=== PATIENT | female | born 1970 | race Caucasian/White ===

== ENCOUNTER → 2017-03-02 | Outpatient (CLI) | payer OTHER ==
--- NOTE | 2017-03-15 10:03 | RADIOLOGY REPORT PS360 ---
US THYROID, US GUIDED BIOPSY THYROID US ORGAN SITE (THYROID), Ordering Physician: Dane Lee MD Patient Age: 46 years: Female HISTORY: LEFT THYROID NODULE TECHNIQUE: Ultrasound of thyroid followed by ultrasound-guided FNA biopsy by Dr. Duckworth Left lobe nodule was identified/reported outside studies and now presents to us for thyroid biopsy. Right lobe surgically absent FINDINGS AND PROCEDURE: ULTRASOUND thyroid Right lobe is surgically absent. The left lobe survey inhomogeneous appearance and dominant bilobed nodule lower pole. This Left lobe nodule was identified/reported outside studies & now presents to us for thyroid biopsy. The A lobulated bilobed ill-defined nodule lower pole left lobe is is identified.. Somewhat bilobed in character it measures up nearly 2.4 seem in maximum length X 1.9 cm AP. On transverse images the bilobed character of this area particularly evident with each bilobed nodule 1.4 cm AP adjacent to one another.-. Both of these areas of this bilobed nodule were subsequently sampled. With FNA biopsy. These images also determined the best approach for access to perform aspiration biopsy of this nodule. Scanning by Dr. Duckworth ULTRASOUND-GUIDED FNA BIOPSY-left lobe dominant nodule lower [place] Patient declined premedication . Following sterile preparation as well as local skin, and cautious deeper placement of Xylocaine anesthetic , Under ultrasound guidance a 25-gauge hypodermic needle, was advanced to the nodule & positioned. Needle tip was observed passing into the nodule on each of multipleFNA biopsies passes. A total of 4 passes were performed and both of these areas of of this bilobed nodule or sampled in this process.. Patient tolerated procedure well. IMPRESSION: Successful FNA biopsy thyroid. Left lower lobe nodule. PATHOLOGY:. No malignancy evident ... BENIGN FOLLICULAR NODULE Differential diagnosis: multinodular goiter. Adenomatous nodule or colloid nodule
== END ==
LOC: RAD 09:04
DX: D34 Benign neoplasm of thyroid gland (principal); Z01.818 Encounter for other preprocedural examination